=== PATIENT | male | born 1995 | race Caucasian/White ===

== ENCOUNTER 2019-08-08 17:43 | Emergency (ER) | payer OTHER ==
[~2019-08-08] VITALS: Ht 177.8 cm; Wt 75.0 kg
[2019-08-08 17:44] VITALS: BP 141/76
--- NOTE | 2019-08-08 19:00 | REP ---
Pain after trauma. PRIORS: None. FINDINGS: No acute fracture or destructive osseous lesion. Electronically Signed by Rob Tyler DO 08/08/2019 07:50 P
[2019-08-08] MEDS ORDERED: KETOROLAC 60 MG/2 ML VIAL (J1885) IM ONE (19:30)
[2019-08-08] MEDS ORDERED: KETO10TAB PO (20:01)
[2019-08-08] MEDS ORDERED: ACETAMINOPHEN 325 MG TAB PO ONE (20:15)
== END 2019-08-08 20:14 | disposition home or self-care (01) ==
LOC: M ED 17:43
DX: S63.511A Sprain of carpal joint of right wrist, initial encounter (principal); W19.XXXA Unspecified fall, initial encounter; Y92.099 Unspecified place in other non-institutional residence as the place of occurrence of the external cause; Y93.9 Activity, unspecified; Y99.9 Unspecified external cause status; Z79.899 Other long term (current) drug therapy
CPT/HCPCS: 73110; 96372; 99284; J1885

== ENCOUNTER 2019-08-14 22:06 | Emergency (ER) | payer OTHER ==
[~2019-08-14] VITALS: Ht 175.3 cm; Wt 75.0 kg
[~2019-08-14 22:06] MED LIST: KETO10TAB PO
[2019-08-15 00:15] LABS: HEMATOCRIT 44.4 % (42.0-52.0); HEMOGLOBIN 15.2 g/dl (13.5-17.5); MEAN CORPUSCULAR HGB CONC 34.2 g/dl (32.0-36.5); MEAN CORPUSCULAR VOLUME 87.7 fl (80.0-96.0); PLATELET COUNT, AUTOMATED 269 10^3/uL (150-450); RED BLOOD COUNT 5.06 10^6/uL (4.30-6.10); WHITE BLOOD COUNT 7.2 10^3/uL (4.0-10.0)
[2019-08-15 00:17] LABS: AMPHETAMINES LEVEL URINE NEGATIVE (NEGATIVE); BARBITURATES URINE NEGATIVE (NEGATIVE); BENZODIAZEPINES URINE NEGATIVE (NEGATIVE); CANNABINOIDS URINE NEGATIVE (NEGATIVE); COCAINE METABOLITE URINE NEGATIVE (NEGATIVE); METHADONE URINE NEGATIVE (NEGATIVE); OPIATES URINE NEGATIVE (NEGATIVE); PHENCYCLIDINE URINE NEGATIVE (NEGATIVE)
[2019-08-15 00:28] LABS: ACETAMINOPHEN LEVEL < 2.0 UG/ML (10.0-30.0); ALT/SGPT 21 U/L (12-78); BILIRUBIN,DIRECT 0.1 MG/DL (0.0-0.2); BILIRUBIN,TOTAL 0.5 MG/DL (0.2-1.0); BLOOD UREA NITROGEN 15 MG/DL (7-18); CALCIUM LEVEL 9.1 MG/DL (8.5-10.1); CARBON DIOXIDE LEVEL 31 MEQ/L (21-32); CHLORIDE LEVEL 105 MEQ/L (98-107); CREATININE FOR GFR 0.91 MG/DL (0.70-1.30); ETHYL ALCOHOL (ETHANOL) < 0.003 % (0.000-0.010); GLOMERULAR FILTRATION RATE > 60.0 (>60); GLUCOSE, FASTING 100 MG/DL (70-100); POTASSIUM SERUM 3.9 MEQ/L (3.5-5.1); SALICYLATE LEVEL < 1.7 MG/DL (5.0-30.0); SODIUM LEVEL 139 MEQ/L (136-145); TOTAL PROTEIN 7.2 GM/DL (6.4-8.2)
[2019-08-15] MEDS ORDERED: NAPR500T6 PO (01:24)
[2019-08-15] MEDS ORDERED: KETO10TAB PO (01:24)
[2019-08-15] MEDS ORDERED: APPL300T4 PO (01:24)
[2019-08-15] MEDS ORDERED: FISH306C PO (01:24)
[2019-08-15 05:50] VITALS: BP 125/62
--- NOTE | 2019-08-15 19:58 | ECGEPIP ---
[facility] - ED Test Date: 2019-08-15 Pat Name: CLYDE VINSON Department: Room: - Gender: Male Mother Helper: sb : 1995 Requested By: Santi Patrick Order Number: [id number] Reading MD: Ernie Wheeler Measurements Intervals Gervais Rate: 55 P: 38 AL: 184 QRS: 74 QRSD: 113 T: 36 QT: 412 QTc: 397 Interpretive Statements SINUS BRADYCARDIA WITH SINUS ARRHYTHMIA MODERATE INTRAVENTRICULAR CONDUCTION DELAY NONSPECIFIC ST T WAVE CHANGES NO PRIOR ECG FOR COMPARISON Electronically Signed on 08-15-2019 19:58:35 EDT by Ernie Wheeler
== END 2019-08-15 06:49 ==
LOC: M ED 22:06
DX: F32.9 Major depressive disorder, single episode, unspecified (principal); R45.851 Suicidal ideations; R94.31 Abnormal electrocardiogram [ECG] [EKG]; Z79.899 Other long term (current) drug therapy
CPT/HCPCS: 36415; 80048; 80076; 80307; 84443; 85027; 93005; 99284; G0480